=== PATIENT | female | born 1990 | race Caucasian/White ===

== ENCOUNTER 2017-10-08 09:26 | Emergency (ER) | payer OTHER ==
[~2017-10-08] VITALS: Ht 160 cm; Wt 53.9 kg
[2017-10-08] MEDS ORDERED: CLON2TAB PO (10:44)
[2017-10-08 10:50] LABS: METHADONE URINE NEGATIVE (NEGATIVE)
[2017-10-08] MEDS ORDERED: CLON0.5T PO (11:06)
[2017-10-08 11:17] VITALS: BP 116/71
== END 2017-10-08 11:19 | disposition home or self-care (01) ==
LOC: M ED 09:26
DX: F15.23 Other stimulant dependence with withdrawal (principal); F41.9 Anxiety disorder, unspecified; Z72.0 Tobacco use

== ENCOUNTER 2017-11-10 14:41 | Emergency (ER) | payer OTHER ==
[~2017-11-10] VITALS: Ht 160 cm; Wt 52.6 kg
[~2017-11-10 14:41] MED LIST: CLON0.5T PO; CLON2TAB PO
[2017-11-10 14:44] VITALS: BP 129/76
[2017-11-10] MEDS ORDERED: ZOFR4TAB3 (15:03)
[2017-11-10] MEDS ORDERED: TYLE325T5 PO (15:03)
== END 2017-11-10 16:33 | disposition left against medical advice (07) ==
LOC: M ED 14:41
DX: F41.9 Anxiety disorder, unspecified (principal)

== ENCOUNTER → 2018-01-31 | Outpatient (CLI) | payer OTHER | LOC: M OUTALCOH 14:04 | DX: F10.20 Alcohol dependence, uncomplicated (principal) ==

== ENCOUNTER 2018-02-08 08:27 | Outpatient (RCR) | payer OTHER | END 2018-02-24 | LOC: M OUTALCOH 02-13 10:00 | DX: F12.20 Cannabis dependence, uncomplicated (principal); F13.10 Sedative, hypnotic or anxiolytic abuse, uncomplicated; Z72.0 Tobacco use ==

== ENCOUNTER 2018-03-14 12:21 | Emergency (ER) | payer OTHER | END 2018-03-14 14:13 | disposition home or self-care (01) | LOC: M ED 12:21 | DX: F41.9 Anxiety disorder, unspecified (principal); F19.11 Other psychoactive substance abuse, in remission | CPT/HCPCS: 36415 ==

== ENCOUNTER 2019-01-14 02:49 | Emergency (ER) | payer MEDICAID, OTHER, SELFPAY ==
[~2019-01-14] VITALS: Ht 160 cm; Wt 60.0 kg
[~2019-01-14 02:49] MED LIST changes: -CLON0.5T PO; +CLON0.5T8 PO; -CLON2TAB PO; +CLON2TAB7 PO; +HYDR-3363; +IBUP-1022 PO; +MIRA3350 PO; +TRAZ-160; +TYLE325T5 PO; +ZOFR4TAB14
[2019-01-14 02:50] VITALS: BP 121/74
[2019-01-14] MEDS ORDERED: IBUP-1114 PO (02:57)
[2019-01-14] MEDS ORDERED: BENA25CA4 PO (02:57)
[2019-01-14] MEDS ORDERED: AMOX500C PO ×2 (05:06→05:07)
[2019-01-14] MEDS ORDERED: KETOROLAC 30 MG/ML VIAL (J1885) As Ordered ONE (05:13)
[2019-01-14] MEDS ORDERED: AMOXICILLIN 500 MG CAP PO ONE (05:15)
[2019-01-14] MEDS ORDERED: KETOROLAC 60 MG/2 ML VIAL (J1885) IM ONE (05:15)
[2019-01-14] MEDS ORDERED: NORCO, ANEXSIA 5/325MG TABLET (HYDROcodone/ACETAMINOPHEN) PO ONE (05:15)
== END 2019-01-14 05:20 | disposition home or self-care (01) ==
LOC: EDBD 02:49 → M ED 02:49
DX: H66.91 Otitis media, unspecified, right ear (principal)
CPT/HCPCS: 96372; 99283; J1885

== ENCOUNTER 2019-01-16 13:46 | Emergency (ER) | payer SELFPAY ==
[~2019-01-16] VITALS: Ht 160 cm; Wt 60.0 kg
[~2019-01-16 13:46] MED LIST changes: +AMOX500C PO; +BENA25CA4 PO; +IBUP-1114 PO
[2019-01-16 13:54] VITALS: BP 121/72
[2019-01-16] MEDS ORDERED: IBUP-1022 PO (14:25)
[2019-01-16] MEDS ORDERED: OFLOSO OTIC (14:25)
[2019-01-16] MEDS ORDERED: IBUPROFEN 800 MG TAB PO ONE (14:45)
== END 2019-01-16 14:47 | disposition home or self-care (01) ==
LOC: M ED 13:46
DX: H66.91 Otitis media, unspecified, right ear (principal); H72.91 Unspecified perforation of tympanic membrane, right ear; J45.909 Unspecified asthma, uncomplicated; F17.210 Nicotine dependence, cigarettes, uncomplicated

== ENCOUNTER 2019-10-16 18:10 | Emergency (ER) | payer MEDICAID ==
[~2019-10-16] VITALS: Ht 160 cm; Wt 54.4 kg
[~2019-10-16 18:10] MED LIST changes: +OFLOSO OTIC; -TRAZ-160; +TRAZ-252
[2019-10-16 19:16] LABS: BASO % 0.4 % (0.0-1.0); EOS % 0.4 % (0.0-3.0); HEMATOCRIT 48.8 % (36.0-47.0); HEMOGLOBIN 16.6 g/dl (12.0-15.5); LYMPH # 2.5 10^3/uL (1.5-5.0); LYMPH % 31.8 % (24.0-44.0); MEAN CORPUSCULAR HEMOGLOBIN 30.7 pg (27.0-33.0); MEAN CORPUSCULAR VOLUME 90.4 fl (80.0-96.0); MONO # 0.6 10^3/uL (0.0-0.8); NEUTROPHILS # 4.7 10^3/uL (1.5-8.5); NEUTROPHILS % 59.1 % (36.0-66.0); PLATELET COUNT, AUTOMATED 194 10^3/uL (150-450)
[2019-10-16 19:17] LABS: APPEARANCE, URINE HAZY (CLEAR); BACTERIA, URINE AUTO 2+ (NEGATIVE); BILIRUBIN, URINE AUTO NEGATIVE (NEGATIVE); BLOOD, URINE BLOOD 1+ (NEGATIVE); COLOR, URINE YELLOW (YELLOW); GLUCOSE, URINE (UA) AUTO NEGATIVE (NEGATIVE); KETONE, URINE AUTO 2+ mg/dL (NEGATIVE); LEUKOCYTE ESTERASE, URINE AUTO NEGATIVE (NEGATIVE); MUCUS, URINE SMALL (NEGATIVE); NITRITE, URINE AUTO POSITIVE (NEGATIVE); PROTEIN, URINE AUTO NEGATIVE (NEGATIVE); RBC, URINE AUTO 2 /HPF (0-3); SPECIFIC GRAVITY URINE AUTO 1.021 (1.002-1.035); SQUAMOUS EPITHELIAL CELL UR AU 4 /HPF (0-6); UROBILINOGEN, URINE AUTO 0.2 mg/dL (0.0-2.0); WBC, URINE AUTO 9 /HPF (0-3)
[2019-10-16 19:33] LABS: INFLUENZA A AMPLIFICATION NEGATIVE (NEGATIVE); INFLUENZA B AMPLIFICATION NEGATIVE (NEGATIVE)
[2019-10-16] MEDS ORDERED: NITROFURANTOIN (MACROBID) 100 MG CAP PO STA (19:41)
[2019-10-16] MEDS ORDERED: NITR-67 PO (19:43)
[2019-10-16] MEDS ORDERED: ONDA4TAB6 PO (19:44)
[2019-10-16] MEDS ORDERED: ONDANSETRON 4 MG ORAL DISINTEGRATING TAB (Q0162 PER 1MG) PO ONE (19:45)
[2019-10-16 19:52] VITALS: BP 113/63
== END 2019-10-16 20:03 | disposition home or self-care (01) ==
LOC: M ED 18:10
DX: N39.0 Urinary tract infection, site not specified (principal); F12.90 Cannabis use, unspecified, uncomplicated
CPT/HCPCS: 36415; 80047; 81001; 84702; 85025; 87502; 99284; Q0162

== ENCOUNTER 2020-09-19 03:48 | Emergency (ER) | payer OTHER ==
[~2020-09-19] VITALS: Ht 157.5 cm; Wt 55.9 kg
[~2020-09-19 03:48] MED LIST changes: +CLON0.5T2 PO; -CLON0.5T8 PO; +NITR-67 PO; +ONDA4TAB6 PO
[2020-09-19] MEDS ORDERED: LIDOCAINE 5% (LIDODERM) PATCH TD ONE (06:15)
[2020-09-19] MEDS ORDERED: ACETAMINOPHEN 500 MG TAB PO ONE (06:15)
[2020-09-19 06:41] LABS: BASO % 0.1 % (0.0-1.0); EOS % 0.3 % (0.0-3.0); HEMATOCRIT 41.7 % (36.0-47.0); HEMOGLOBIN 13.8 g/dl (12.0-15.5); LYMPH # 1.3 10^3/uL (1.5-5.0); LYMPH % 11.2 % (24.0-44.0); MEAN CORPUSCULAR HEMOGLOBIN 31.4 pg (27.0-33.0); MEAN CORPUSCULAR HGB CONC 33.1 g/dl (32.0-36.5); MEAN CORPUSCULAR VOLUME 94.8 fl (80.0-96.0); MONO # 0.9 10^3/uL (0.0-0.8); MONO % 7.5 % (0.0-5.0); NEUTROPHILS # 9.3 10^3/uL (1.5-8.5); NEUTROPHILS % 80.5 % (36.0-66.0); PLATELET COUNT, AUTOMATED 145 10^3/uL (150-450); WHITE BLOOD COUNT 11.5 10^3/uL (4.0-10.0)
--- NOTE | 2020-09-19 08:00 | REPVR ---
PROCEDURE INFORMATION: Exam: CT Abdomen And Pelvis Without Contrast Exam date and time: 09/19/2020 7:17 AM Age: 30 years old Clinical indication: Abdominal pain; Other: B/l low back/flank pain r>l, ; additional info: B/l low back/flank pain r>l, positive UTI, R/O stone TECHNIQUE: Imaging protocol: Computed tomography of the abdomen and pelvis without contrast. Radiation optimization: All CT scans at this facility use at least one of these dose optimization techniques: automated exposure control; mA and/or kV adjustment per patient size (includes targeted exams where dose is matched to clinical indication); or iterative reconstruction. COMPARISON: RENAL US 07/05/2018 8:40 AM FINDINGS: Liver: No mass. Gallbladder and bile ducts: No calcified stones. No ductal dilation. Pancreas: No ductal dilation. Spleen: No splenomegaly. Adrenals: No mass. Kidneys and ureters: Small calcifications along the courses of both ureters overlying the psoas muscles, measuring up to 4 mm on the left. No hydronephrosis. Stomach and bowel: No obstruction. No mucosal thickening. Appendix: No evidence of appendicitis. Intraperitoneal space: No free air. No significant fluid collection. Vasculature: No abdominal aortic aneurysm. Lymph nodes: No enlarged lymph nodes. Urinary bladder: There is thickening of the urinary bladder wall with a small amount of gas present in the bladder. Reproductive: Unremarkable as visualized. Bones/joints: No acute fracture. Soft tissues: Unremarkable. IMPRESSION: 1. There is thickening of the urinary bladder wall which can be seen with cystitis. Correlate with urinalysis. 2. Small calcifications overlying both psoas muscles along the courses of the ureters, unclear if these represent small nonobstructing ureteral calculi or gonadal vascular calcifications (difficult to differentiate without intravenous contrast). Electronically signed by: Luis Cox On 09/19/2020 07:59:47 AM
[2020-09-19] MEDS ORDERED: CIPR-249 PO (08:14)
[2020-09-19] MEDS ORDERED: FLOM0.4C39 PO (08:14)
[2020-09-19 08:30] VITALS: BP 100/57
[2020-09-19] MEDS ORDERED: **NOTE PATIENT COMMENT** MISC XX ONE (18:30)
== END 2020-09-19 08:30 | disposition home or self-care (01) ==
LOC: M ED 03:48
DX: N20.1 Calculus of ureter (principal); N30.90 Cystitis, unspecified without hematuria; J45.909 Unspecified asthma, uncomplicated; F17.210 Nicotine dependence, cigarettes, uncomplicated; F12.20 Cannabis dependence, uncomplicated

== ENCOUNTER 2021-02-18 06:12 | Emergency (ER) | payer OTHER ==
[~2021-02-18] VITALS: Ht 157.5 cm; Wt 47.2 kg
[~2021-02-18 06:12] MED LIST changes: +CIPR-249 PO; +FLOM0.4C39 PO
[2021-02-18 07:22] LABS: BASO % 0.2 % (0.0-1.0); EOS # 0.1 10^3/uL (0.0-0.5); EOS % 0.8 % (0.0-3.0); HEMATOCRIT 41.9 % (36.0-47.0); HEMOGLOBIN 13.7 g/dl (12.0-15.5); LYMPH # 2.6 10^3/uL (1.5-5.0); LYMPH % 23.4 % (24.0-44.0); MEAN CORPUSCULAR HEMOGLOBIN 29.1 pg (27.0-33.0); MEAN CORPUSCULAR HGB CONC 32.7 g/dl (32.0-36.5); MONO # 0.8 10^3/uL (0.0-0.8); MONO % 7.2 % (2.0-8.0); NEUTROPHILS # 7.5 10^3/uL (1.5-8.5); NEUTROPHILS % 68.2 % (36.0-66.0); PLATELET COUNT, AUTOMATED 232 10^3/uL (150-450); RED BLOOD COUNT 4.71 10^6/uL (4.00-5.40)
[2021-02-18 08:22] VITALS: BP 103/57
--- NOTE | 2021-02-18 08:37 | REP ---
INDICATION: vaginal bleeding. LMP unknown. COMPARISON: None. TECHNIQUE: Transabdominal and transvaginal scanning are performed. FINDINGS: Uterine dimensions are mildly enlarged at 9.3 x 4.4 x 7.2 cm. Endometrial echo is 1.9 cm thick. No intrauterine gestational sac is seen. The endometrium is somewhat irregular. There are some areas of Doppler flow in the uterine endometrium. No focal uterine mass is seen. Normal ovaries are seen bilaterally. No free fluid. Right ovarian dimensions are 3.2 x 1.7 x 2.1 cm. Left ovary dimensions are 2.7 x 1.8 x 2.0 cm. IMPRESSION: Nonspecific sonographic findings. Heterogeneous thickening of the endometrium. No intrauterine gestational sac. Clinical and possibly sonographic follow-up is advised. There is no adnexal mass or free fluid visible. <Electronically signed by Matt Villa > 02/18/21 [id number]
== END 2021-02-18 08:56 | disposition home or self-care (01) ==
LOC: M ED 06:12
DX: O03.9 Complete or unspecified spontaneous abortion without complication (principal); O99.511 Diseases of the respiratory system complicating pregnancy, first trimester; J45.909 Unspecified asthma, uncomplicated; O99.341 Other mental disorders complicating pregnancy, first trimester; F41.9 Anxiety disorder, unspecified; Z3A.01 Less than 8 weeks gestation of pregnancy

== ENCOUNTER 2021-05-11 03:01 | Emergency (ER) | payer OTHER ==
[~2021-05-11] VITALS: Ht 160 cm; Wt 45.1 kg
[2021-05-11] MEDS ORDERED: LORA1TAB4 PO (03:11)
[2021-05-11] MEDS ORDERED: ADDE20CA3 PO (03:11)
[2021-05-11] MEDS ORDERED: DEPO150I IM (03:11)
[2021-05-11 07:02] VITALS: BP 125/78
--- NOTE | 2021-05-11 08:10 | REPVR ---
PROCEDURE INFORMATION: Exam: XR Left Ribs with PA Chest Exam date and time: 05/11/2021 6:51 AM Age: 30 years old Clinical indication: Chest wall pain; Left; Additional info: Trauma, left mid lateral pain TECHNIQUE: Imaging protocol: XR Left ribs with PA chest. Views: 3 views COMPARISON: No relevant prior studies available. FINDINGS: Lungs: Unremarkable. No consolidation. Pleural spaces: Unremarkable. No pleural effusion. No pneumothorax. Heart/Mediastinum: No cardiomegaly. Bones/joints: Unremarkable. IMPRESSION: No acute findings. Electronically signed by: Kenney Romero On 05/11/2021 08:10:18 AM
== END 2021-05-11 07:40 | disposition home or self-care (01) ==
LOC: M ED 03:01
DX: S20.212A Contusion of left front wall of thorax, initial encounter (principal); Y04.8XXA Assault by other bodily force, initial encounter; Y07.9 Unspecified perpetrator of maltreatment and neglect; Y92.018 Other place in single-family (private) house as the place of occurrence of the external cause; J45.909 Unspecified asthma, uncomplicated; F41.9 Anxiety disorder, unspecified; F43.10 Post-traumatic stress disorder, unspecified; Z79.899 Other long term (current) drug therapy; Z79.3 Long term (current) use of hormonal contraceptives

== ENCOUNTER 2021-06-15 02:54 | Emergency (ER) | payer OTHER ==
[~2021-06-15 02:54] MED LIST changes: +ADDE20CA3 PO; +DEPO150I IM; +LORA1TAB4 PO
[2021-06-15 03:11] VITALS: BP 118/78
[2021-06-15 03:49] LABS: HEMATOCRIT 44.7 % (36.0-47.0); HEMOGLOBIN 15.4 g/dl (12.0-15.5); MEAN CORPUSCULAR HEMOGLOBIN 30.2 pg (27.0-33.0); MEAN CORPUSCULAR HGB CONC 34.5 g/dl (32.0-36.5); MEAN CORPUSCULAR VOLUME 87.6 fl (80.0-96.0); PLATELET COUNT, AUTOMATED 222 10^3/uL (150-450)
[2021-06-15 04:14] LABS: AMPHETAMINES LEVEL URINE POSITIVE (NEGATIVE); BARBITURATES URINE NEGATIVE (NEGATIVE); BENZODIAZEPINES URINE NEGATIVE (NEGATIVE); CANNABINOIDS URINE POSITIVE (NEGATIVE); COCAINE METABOLITE URINE NEGATIVE (NEGATIVE); METHADONE URINE NEGATIVE (NEGATIVE); OPIATES URINE NEGATIVE (NEGATIVE); PHENCYCLIDINE URINE NEGATIVE (NEGATIVE)
[2021-06-15 04:27] LABS: ACETAMINOPHEN LEVEL < 2.0 UG/ML (10.0-30.0); ALBUMIN 4.2 GM/DL (3.2-5.2); ALT/SGPT 16 U/L (12-78); BILIRUBIN,DIRECT < 0.1 MG/DL (0.0-0.2); BILIRUBIN,TOTAL 0.3 MG/DL (0.2-1.0); BLOOD UREA NITROGEN 15 MG/DL (7-18); CALCIUM LEVEL 8.6 MG/DL (8.5-10.1); CARBON DIOXIDE LEVEL 23 MEQ/L (21-32); CHLORIDE LEVEL 110 MEQ/L (98-107); CREATININE FOR GFR 0.95 MG/DL (0.55-1.30); ETHYL ALCOHOL (ETHANOL) < 0.003 % (0.000-0.010); GLOMERULAR FILTRATION RATE > 60.0 (>60); GLUCOSE, FASTING 99 MG/DL (70-100); POTASSIUM SERUM 3.8 MEQ/L (3.5-5.1); SALICYLATE LEVEL < 1.7 MG/DL (5.0-30.0); SODIUM LEVEL 141 MEQ/L (136-145); TOTAL PROTEIN 7.8 GM/DL (6.4-8.2)
== END 2021-06-15 05:50 | disposition home or self-care (01) ==
LOC: M ED 02:54
DX: F43.0 Acute stress reaction (principal); F12.90 Cannabis use, unspecified, uncomplicated; F17.210 Nicotine dependence, cigarettes, uncomplicated

== ENCOUNTER 2021-12-08 15:09 | Emergency (ER) | payer OTHER ==
[~2021-12-08] VITALS: Ht 152.4 cm; Wt 50.0 kg
[2021-12-08 19:29] VITALS: BP 113/75
== END 2021-12-08 19:34 | disposition home or self-care (01) ==
LOC: M ED 15:09
DX: S06.0X0A Concussion without loss of consciousness, initial encounter (principal); S00.83XA Contusion of other part of head, initial encounter; S70.11XA Contusion of right thigh, initial encounter; Y04.8XXA Assault by other bodily force, initial encounter; Y07.9 Unspecified perpetrator of maltreatment and neglect; Y92.008 Other place in unspecified non-institutional (private) residence as the place of occurrence of the external cause; J45.909 Unspecified asthma, uncomplicated; F41.9 Anxiety disorder, unspecified; Z79.899 Other long term (current) drug therapy; F17.210 Nicotine dependence, cigarettes, uncomplicated